=== PATIENT | female | born 1965 ===

== ENCOUNTER 2017-04-08 15:15 | Emergency (ER) | payer BC ==
--- NOTE | 2017-04-08 15:43 | UC ---
HPI Febrile Illness - HPI Summary HPI Summary: complaint of diarrhea since 04/04/17 vomited 1x the first day for the first days felt feverish and had some chills tried immodium for the last 2 days wth minimal relief can't eat without immediate BM feels nauseated able to drink fluids and gatorade denies any blood in stool denies dysuria, no increase in frequency and urgency denies dizziness, shortness of breath,chest pain and headache [place] staying [place] a [place] and the water had problems- no one else has any illness - History of Current Complaint Time Seen by Provider: 04/08/17 15:36 Hx Obtained From: Patient - Allergy/Home Medications Allergies/Adverse Reactions: Allergies Allergy/AdvReac Type Severity Reaction Status Date / Time Nitrofurantoin Allergy Rash Verified 04/08/17 15:56 [From Macrodantin] Penicillins Allergy Rash Verified 04/08/17 15:56 Sulfamethoxazole Allergy Rash Verified 04/08/17 15:56 w/Trimethoprim [From Bactrim] Home Medications: Home Medications Cholecalciferol [Vitamin D] 4,000 unit PO DAILY 04/08/17 [History Confirmed 03/20] Levothyroxine TAB* [Synthroid TAB*] 100 mcg PO DAILY 04/08/17 [History Confirmed 04/08/17] Liothyronine TAB* [Cytomel TAB*] 5 mcg PO DAILY 04/08/17 [History Confirmed 03/20] Loperamide CAP* [Imodium CAP*] 0 mg PO SEE INSTRUCTIONS PRN 04/08/17 [History Confirmed 04/08/17] Multivitamins/Minerals TAB* [Thera M Plus TAB*] 1 tab PO DAILY 04/08/17 [ History Confirmed 04/08/17] PMH/Surg Hx/FS Hx/Imm Hx Previously Healthy: Yes Endocrine/Hematology History: Reports: Hx Thyroid Disease Infectious Disease History: No - Family History Known Family History: Negative: Cardiac Disease, Hypertension, Diabetes - Social History Occupation: Employed Full-time Lives: With Family Hx Tobacco Use: No Review of Systems Constitutional: Fever, Chills Skin: Negative Eyes: Negative ENT: Negative Respiratory: Negative Cardiovascular: Negative Gastrointestinal: Diarrhea, Nausea Genitourinary: Negative Motor: Negative Neurovascular: Negative Musculoskeletal: Negative Neurological: Negative Psychological: Negative All Other Systems Reviewed And Are Negative: Yes Physical Exam Triage Information Reviewed: Yes Appearance: No Pain Distress, Well-Nourished Vital Signs Reviewed: Yes Eyes: Positive: Conjunctiva Clear ENT: Positive: Pharynx normal, TMs normal Neck: Positive: Supple, No Lymphadenopathy Respiratory: Positive: Lungs clear, Normal breath sounds, No respiratory distress, No accessory muscle use Cardiovascular: Positive: RRR, No Murmur, Pulses Normal, Brisk Capillary Refill Abdomen Description: Positive: Nontender, No Organomegaly, Soft. Negative: CVA Tenderness (R), CVA Tenderness (L), Distended, Guarding Bowel Sounds: Positive: Present Musculoskeletal: Positive: No Edema Neurological: Positive: Alert Psychological Exam: Normal Skin Exam: Normal Course/Dx - Course Course Of Treatment: exam [id number]. VSS at this time,no point tenderness in abdomen, denies dizziness and able to stay hydrated. will treat with zofran to increase fluid intake and will collect stool cultures. discussed s/s of when to seek emergent care and p states understanding - Febrile Illness Differential Diagnoses: Other: - gastroenteritis, bacterial infection - Diagnoses Clinic Provider Diagnoses: gastroenteritis Discharge - Discharge Plan Condition: Stable Disposition: HOME Prescriptions: Ondansetron HCl [Zofran 4 MG TAB] 4 mg PO Q8HR #12 tab Patient Education Materials: Gastroenteritis (ED) Referrals: [facility] [Outside] Additional Instructions: start zofran and increase your fluid intake you will be called if any of your tests are positive. GASTROENTERITIS What is Gastroenteritis? Gastroenteritis is an inflammation of the stomach and bowel that is often called the stomach "flu.'' It should only last 1 or 2 days. You usually get gastroenteritis because you've been in contact with someone who's already infected or because you've eaten contaminated food, or drank contaminated water. Many different viruses can cause intestinal problems but the signs and symptoms are usually the same: watery diarrhea, abdominal cramps, and nausea or vomiting. Symptoms Might Include: Abdominal cramps Diarrhea Nausea Vomiting Blood or mucus in stools Muscle aches Headaches Fever Extreme exhaustion Treatment Recommendations: Decrease activity until you feel better or the diarrhea and vomiting are gone. Take clear liquids, such as jordan jeramy, cola, water, tea, broth, and gelatin, for the first 24 hours or until the diarrhea and vomiting stops. During the next 24 hours you may eat bland foods like cooked cereals, rice, soup, bread, crackers, baked potatoes, eggs, or applesauce. Do not eat fruits, vegetables, fried or spicy foods, bran, candy, dairy products (such as milk or ice cream), apple juice, or alcoholic beverages. Drink 8 to 12 glasses of liquid a day. Most of the problems with gastroenteritis are caused by loss of water through vomiting and diarrhea. You may take ibuprofen (Motrin, Advil) or acetaminophen (Tylenol) for fever and muscle aches. Call Your Doctor or Return Here IF: Your symptoms last for more than 6 days. You have severe pain in the abdomen (area around the stomach) or rectum. You have a high temperature. You find blood, mucus, or worms in your stool. You have signs of dehydration (water loss), including dry mouth, excessive thirst, crinkled skin, little or no urination, dizziness, or light-headedness. You have any other new symptoms that worry you.
[2017-04-08] MEDS ORDERED: Ondansetron ODT TAB* 4 MG PO ONE (15:49)
[2017-04-08 15:55] VITALS: BP 106/65
--- NOTE | 2017-04-09 17:40 | ED ---
Progress - Progress Note Progress Note: Patient (-) for CDIFF, CRYPTOSPORIDIUM/GIARDIA, AND SHIGA TOXIN SO FAR. Course/Dx - Course Course Of Treatment: exam [id number]. VSS at this time,no point tenderness in abdomen, denies dizziness and able to stay hydrated. will treat with zofran to increase fluid intake and will collect stool cultures. discussed s/s of when to seek emergent care and p states understanding - Diagnoses Provider Diagnoses: Diarrhea
== END 2017-04-08 16:13 | disposition home or self-care (01) ==
LOC: UCCORT 15:15
DX: K52.9 Noninfective gastroenteritis and colitis, unspecified (principal); E07.9 Disorder of thyroid, unspecified; Z88.1 Allergy status to other antibiotic agents; Z88.0 Allergy status to penicillin; Z88.2 Allergy status to sulfonamides
CPT/HCPCS: 87045; 87046; 87077; 87328; 87329; 87493; 87899; 99202; A9270-GY; G0463

== ENCOUNTER 2017-04-09 18:10 | Emergency (ER) | payer BC ==
[2017-04-09 18:26] VITALS: BP 112/55
--- NOTE | 2017-04-09 18:38 | UC ---
Abdominal Pain Female HPI - HPI Summary HPI Summary: 51 year old female presents with continued diarrhea, fever, chills and abdominal pain. I will send her to the ER to rule out colitis. - History of Current Complaint Chief Complaint: UCGI Stated Complaint: GI Time Seen by Provider: 04/09/17 18:37 Hx Last Menstrual Period: MID MARCH Allergies/Adverse Reactions: Allergies Allergy/AdvReac Type Severity Reaction Status Date / Time Nitrofurantoin Allergy Rash Verified 04/09/17 18:26 [From Macrodantin] Penicillins Allergy Rash Verified 04/09/17 18:26 Sulfamethoxazole Allergy Rash Verified 04/09/17 18:26 w/Trimethoprim [From Bactrim] PMH/Surg Hx/FS Hx/Imm Hx - Surgical History Surgical History: Yes Surgery Procedure, Year, and Place: appy, ovarian cyst, tonsils - Family History Known Family History: Negative: Cardiac Disease, Hypertension, Diabetes - Social History Alcohol Use: Occasionally Substance Use Type: None Smoking Status (MU): Never Smoked Tobacco Review of Systems Constitutional: Negative Skin: Negative Eyes: Negative ENT: Negative Respiratory: Negative Cardiovascular: Negative Gastrointestinal: Abdominal Pain, Diarrhea, Nausea Genitourinary: Negative Motor: Negative Neurovascular: Negative Musculoskeletal: Negative Neurological: Negative Psychological: Negative All Other Systems Reviewed And Are Negative: Yes Physical Exam Triage Information Reviewed: Yes Vital Signs: Initial Vital Signs Temp 36.8 C 04/09/17 18:12 Pulse 74 04/09/17 18:12 Resp 18 04/09/17 18:12 BP 112/55 04/09/17 18:12 Pulse Ox 97 04/09/17 18:12 Eye Exam: Normal ENT Exam: Normal Dental Exam: Normal Neck exam: Normal Neck: Positive: 1 Respiratory Exam: Normal Cardiovascular Exam: Normal Abdomen Description: Positive: Distended, Guarding Musculoskeletal Exam: Normal Neurological Exam: Normal Psychological Exam: Normal Skin Exam: Normal Abd Pain Female Course/Dx - Differential Dx/Diagnosis Provider Diagnoses: diarrhea. fever. chills Discharge - Discharge Plan Condition: Guarded Disposition: AGAINST MEDICAL ADVICE Patient Education Materials: Acute Diarrhea (ED) Referrals: Non Staff,Doctor [Primary Care Provider] -
--- NOTE | 2017-04-10 18:02 | UC ---
Progress - Progress Note Progress Note: Stool positive for Campylobacter. Doing well. Ok to observe.
== END 2017-04-09 18:40 | disposition left against medical advice (07) ==
LOC: UCCORT 18:10
DX: A04.5 Campylobacter enteritis (principal); R50.9 Fever, unspecified
CPT/HCPCS: 99212; G0463